=== PATIENT | female | born 1995 | race Caucasian/White ===

== ENCOUNTER 2023-02-27 07:50 | Emergency (ER) | payer BC, MEDICAID ==
[2023-02-27] MEDS ORDERED: Ibuprofen 800 MG Tab PO ONE (10:05)
== END 2023-02-27 10:13 | disposition home or self-care (01) ==
LOC: DL.ED 07:50
DX: S63.502A Unspecified sprain of left wrist, initial encounter (principal); S60.212A Contusion of left wrist, initial encounter; E66.9 Obesity, unspecified; Z68.41 Body mass index [BMI] 40.0-44.9, adult; Z86.16 Personal history of COVID-19; Z91.09 Other allergy status, other than to drugs and biological substances; Z88.8 Allergy status to other drugs, medicaments and biological substances; W23.0XXA Caught, crushed, jammed, or pinched between moving objects, initial encounter
CPT/HCPCS: 73110; 73140; 99283; A9270; 99282